=== PATIENT | female | born 1985 | race Caucasian/White ===

== ENCOUNTER → 2023-12-28 | Outpatient (CLI) | payer OTHER ==
[2024-02-18 11:59] LABS: ALBUMIN 4.2 g/dL (3.5-5.0); CALCIUM 9.1 mg/dL (8.3-10.5); TOTAL BILIRUBIN 0.5 mg/dL (0.2-1.2); TOTAL PROTEIN 7.2 g/dL (6.4-8.3)
[2024-02-18 12:09] LABS: BASO # 0.05 K/mm3 (0.02-0.10); EOS # 0.14 K/mm3 (0.04-0.40); EOS % 2.3 % (1.0-5.0); HEMATOCRIT 39.9 % (37.0-47.0); HEMOGLOBIN 12.4 g/dL (12.5-16.0); LYMPH# 1.77 K/mm3 (1.50-4.00); MEAN CELL VOLUME 87 fl (78-100); MEAN CORPUSCULAR HEMOGLOBIN 27 pg (27-31); MEAN CORPUSCULAR HGB CONC 31 g/dL (33-37); MEAN PLATELET VOLUME 10.9 fl (7.4-10.4); MONO # 0.42 K/mm3 (0.20-0.80); NEU # 3.79 K/mm3 (1.40-6.50); PLATELET COUNT 228 K/mm3 (130-400); RED BLOOD COUNT 4.61 M/mm3 (4.10-5.30); WHITE BLOOD COUNT 6.2 K/mm3 (4.8-10.8)
== END ==
LOC: LAB 12:30
PROVIDERS: Physician Assistant
DX: Z13.29 Encounter for screening for other suspected endocrine disorder (principal); O72.1 Other immediate postpartum hemorrhage; Z3A.00 Weeks of gestation of pregnancy not specified

== ENCOUNTER → 2024-06-03 | Outpatient (CLI) | payer OTHER ==
[2024-06-03 09:49] LABS: BASO # 0.04 K/mm3 (0.02-0.10); EOS % 3.5 % (1.0-5.0); HEMATOCRIT 41.4 % (37.0-47.0); HEMOGLOBIN 13.4 g/dL (12.5-16.0); LYMPH# 1.83 K/mm3 (1.50-4.00); MEAN CELL VOLUME 93 fl (78-100); MEAN CORPUSCULAR HEMOGLOBIN 30 pg (27-31); MEAN CORPUSCULAR HGB CONC 32 g/dL (33-37); MEAN PLATELET VOLUME 10.6 fl (7.4-10.4); MONO # 0.35 K/mm3 (0.20-0.80); NEU # 3.33 K/mm3 (1.40-6.50); PLATELET COUNT 276 K/mm3 (130-400); RED BLOOD COUNT 4.47 M/mm3 (4.10-5.30); RED CELL DISTRIBUTION WIDTH 12.5 % (11.5-14.5); WHITE BLOOD COUNT 5.8 K/mm3 (4.8-10.8)
[2024-06-03 09:54] LABS: ALBUMIN 4.4 g/dL (3.5-5.0)
[2024-06-03 09:55] LABS: CALCIUM 9.2 mg/dL (8.3-10.5)
[2024-06-03 09:56] LABS: TOTAL PROTEIN 7.8 g/dL (6.4-8.3)
[2024-06-03 09:58] LABS: TOTAL BILIRUBIN 0.6 mg/dL (0.2-1.2)
== END ==
LOC: LAB 09:37
PROVIDERS: Physician Assistant
DX: R10.11 Right upper quadrant pain (principal)

== ENCOUNTER 2024-11-14 12:48 | Emergency (ER) | payer OTHER ==
[~2024-11-14] VITALS: Ht 170.2 cm; Wt 65.9 kg
[2024-11-14] MEDS ORDERED: GOOD NEIGHBOR L10 MG PO (13:04)
[2024-11-14] MEDS ORDERED: AUROVELA FE 1-1 EACH PO (13:05)
[2024-11-14] MEDS ORDERED: SINGULAIR 110 MG/TAB PO (13:05)
[2024-11-14] MEDS ORDERED: FLUTICASON0.05 MG/Ac NS (13:05)
[2024-11-14] MEDS ORDERED: AMLODIPINE BES2.5 MG PO (13:06)
[2024-11-14] MEDS ORDERED: Ibuprofen 200 MG TAB PO ONE (13:15)
[2024-11-14 13:17] VITALS: BP 138/68
== END 2024-11-14 13:17 | disposition home or self-care (01) ==
LOC: ED 12:48
DX: S31.41XA Laceration without foreign body of vagina and vulva, initial encounter (principal); W45.8XXA Other foreign body or object entering through skin, initial encounter; Y92.89 Other specified places as the place of occurrence of the external cause; Y99.0 Civilian activity done for income or pay